=== PATIENT | female | born 1985 | race Caucasian/White ===

== ENCOUNTER → 2021-10-25 | Day surgery (SDC) | payer BC ==
[~2021-10-25] MED LIST: CYCLOBENZAPRINE5 MG PO; FLONASE ALLER15.8 ML; HYDROXYZINE HCL25 MG PO; LEXAPRO TAB 1010 MG PO; LIRAGLUTIDE; LORATADINE10 MG PO; MELOXICAM15 MG PO; PROPRANOLOL HCL80 MG PO; SUMATRIPTAN SUC50 MG PO; VITAMIN D21250 MCG PO
[2021-10-27 08:15] LABS: ENDOMYSIAL ANTIBODY IGA Negative (Negative); IMMUNOGLOBULIN A, QN, SERUM 319 mg/dL (87-352); T-TRANSGLUTAMINASE (TTG) IGA <2 U/mL (0-3)
== END | disposition home or self-care (01) ==
LOC: OR 06:32
PROVIDERS: Internal Medicine Gastroenterology
DX: R19.7 Diarrhea, unspecified (principal); K64.1 Second degree hemorrhoids; K64.4 Residual hemorrhoidal skin tags; R10.9 Unspecified abdominal pain; M19.90 Unspecified osteoarthritis, unspecified site; F41.9 Anxiety disorder, unspecified; F32.A Depression, unspecified; G43.909 Migraine, unspecified, not intractable, without status migrainosus; E66.01 Morbid (severe) obesity due to excess calories; Z68.43 Body mass index [BMI] 50.0-59.9, adult; Z79.1 Long term (current) use of non-steroidal anti-inflammatories (NSAID); Z79.899 Other long term (current) drug therapy
CPT/HCPCS: 36415; 82784; 84703; J2704; J7040